=== PATIENT | male | born 1950 | race Caucasian/White ===

== ENCOUNTER 2020-07-04 05:35 | Day surgery (SDC) | payer OTHER ==
[~2020-07-04] VITALS: Ht 177.8 cm; Wt 103.9 kg
[~2020-07-04 05:35] MED LIST: FLUT.05NI; HYDCHL25 PO; METF500 PO; Vitamin B Comple1 EA PO
[2020-07-04] MEDS ORDERED: MUPIROCIN1 G1 TOP (06:19)
--- NOTE | 2020-07-04 06:36 | NUR ---
History, Chart, Medications and Allergies reviewed before start of procedure. Patient confirms NPO status and agrees with scheduled surgery. Lungs clear T/O to Auscultation.
--- NOTE | 2020-07-04 07:11 | NUR ---
0705- UP TO BR TO VOID.
--- NOTE | 2020-07-04 07:17 | NUR ---
[facility] USED TO NARES X3 AMPULES PER DR ORDER. KNEE HIGH DOROTHY HOSE WITH CALF PAS APPLIED TO LLE.
--- NOTE | 2020-07-04 17:09 | NUR ---
SHIFT SUMMARY PT VERY PLEASED. UP AMBULATING W/ SBA. WORKED W/ THERAPY WELL. EATING, DRINKING, AND VOIDING. PAIN WELL MANAGED.
--- NOTE | 2020-07-05 03:48 | NUR ---
SHIFT SUMMARY S/P RIGHT HIP FX. PT A/O WITH VSS. NO ACUTE CHANGES. NPO SINCE MIDNIGHT. IVF INFUSING PER ORDERS. HODGE IN PLACE TO GRAVITY DRAIN. PAIN MANAGED WITH 0.5MG IV DILAUDID. ON BEDREST, REPOSTIONED PRN GAURI. PT APPEARS TO HAVE RESTED WELL T/O NIGHT. PLAN FOR SURGERY TODAY. PT CURRENTLY RESTING IN BED WITH CALL LIGHT IN REACH. WILL CONT TO MONITOR AND GIVE REPORT TO ONCOMING RN.
--- NOTE | 2020-07-05 03:57 | NUR ---
SHIFT SUMMARY POD 1 RIGHT TKA, GRACIA WRAP/DRESSING CDI. TEDS AND POLAR DAYANARA IN PLACE. PAIN MANAGED WITH 1 TAB OXY. AMB IN HALLWAY 2X WITH FWW/GB/SBA; GAURI WELL. REPORTS VOIDING WITHOUT DIFFICULTY. GAURI PO INTAKE, DENIES N/V. PLAN TO WORK WITH THERAPY TODAY AND POSSIBLE D/C HOME. PT CURRENTLY RESTING IN BED WITH CALL LIGHT IN REACH. WILL CONT TO MONITOR AND GIVE REPORT TO ONCOMING RN.
[2020-07-05 04:34] LABS: BASOPHILS ABSOLUTE AUTO 0.03 K/mm3 (0.00-0.23); BASOPHILS PERCENT AUTO 0 % (0-2); EOSINOPHILS ABSOLUTE AUTO 0.08 K/mm3 (0.00-0.68); EOSINOPHILS PERCENT AUTO 1 % (0-6); Hematocrit 38.7 % (37.0-53.0); Hemoglobin 13.4 g/dL (13.5-17.5); IMMATURE GRAN ABSOLUTE AUTO 0.07 K/mm3 (0.00-0.10); IMMATURE GRAN PERCENT AUTO 1 % (0-1); LYMPHOCYTES ABSOLUTE AUTO 1.63 K/mm3 (0.84-5.20); LYMPHOCYTES PERCENT AUTO 12 % (21-46); MONOCYTES ABSOLUTE AUTO 1.58 K/mm3 (0.16-1.47); MONOCYTES PERCENT AUTO 12 % (4-13); Mean Corpuscular HGB 30.5 pg (26.0-34.0); Mean Corpuscular HGB Conc 34.6 g/dL (31.5-36.5); Mean Corpuscular Volume 88 fL (80-100); Mean Platelet Volume 11.8 fL (9.1-12.4); NEUTROPHILS ABSOLUTE AUTO 9.78 K/mm3 (1.96-9.15); NEUTROPHILS PERCENT AUTO 74 % (41-73); Platelet Count 208 K/mm3 (150-400); RDW Standard Deviation 42.1 fL (35.1-46.3); Red Blood Cell Count 4.39 M/mm3 (4.30-5.90); White Blood Cell Count 13.17 K/mm3 (4.00-11.30)
[2020-07-05 04:49] LABS: Anion Gap 4 mmol/L (6-16); Blood Urea Nitrogen 20 mg/dL (8-24); Bun/Creatinine Ratio 23.2 (12.0-20.0); CO2, Blood 30 mmol/L (21-32); Calcium, Blood 8.7 mg/dL (8.5-10.1); Chloride, Blood 107 mmol/L (98-108); Creatinine, Blood 0.86 mg/dL (0.60-1.20); Glomerular Filtration Rate >60 (60-); Glucose, Blood 150 mg/dL (70-99); Potassium, Blood 3.9 mmol/L (3.5-5.5); Sodium, Blood 141 mmol/L (136-145)
[2020-07-05] MEDS ORDERED: Percocet 5-3251 EACH PO (09:01)
[2020-07-05] MEDS ORDERED: ASPI325 PO (09:01)
--- NOTE | 2020-07-05 10:25 | NUR ---
DISCHARGE ESCORTED OUT VIA W/C AFTER GIVEN SCRIPTS, POLAR PACK, AND DRSGS. CLEARED THERAPY. EATING/DRINKING/VOIDING WITHOUT ISSUE. SPOUSE AT SIDE.
== END 2020-07-05 10:24 | disposition home or self-care (01) ==
LOC: ORSCMMR 05:35 → SURS 09:56 → ORD 12:15 → ORSCMMR 12:15 → ORD 07-11 13:45
PROVIDERS: Orthopaedic Surgery
PROC: 0SRC0JA Replacement of Right Knee Joint with Synthetic Substitute, Uncemented, Open Approach (ICD-10-PCS; principal; 2020-07-04 07:30)
PROC: 8E0Y0CZ Robotic Assisted Procedure of Lower Extremity, Open Approach (ICD-10-PCS; principal; 2020-07-04 07:30)
DX: M17.11 Unilateral primary osteoarthritis, right knee (principal); I10 Essential (primary) hypertension; E11.9 Type 2 diabetes mellitus without complications; Z79.899 Other long term (current) drug therapy; Z79.84 Long term (current) use of oral hypoglycemic drugs
CPT/HCPCS: 27447; S2900; 36415; 73560-RT; 80048; 82947; 85025; 88300; 97110; 97116; 97162; A9270; A9270-GY; C1776; J0171; J0690; J0735; J1100; J1815; J1885; J2250; J2370; J2405; J2704; J2795; J3010; J7120

== ENCOUNTER 2021-02-19 16:16 | Emergency (ER) | payer OTHER ==
[~2021-02-19] VITALS: Ht 177.8 cm; Wt 100.9 kg
[~2021-02-19 16:16] MED LIST changes: +ASPI325 PO; +MUPIROCIN1 G1 TOP; +Percocet 5-3251 EACH PO
[2021-02-19 17:11] LABS: BASOPHILS ABSOLUTE AUTO 0.07 K/mm3 (0.00-0.23); BASOPHILS PERCENT AUTO 1 % (0-2); EOSINOPHILS ABSOLUTE AUTO 0.34 K/mm3 (0.00-0.68); EOSINOPHILS PERCENT AUTO 5 % (0-6); Hematocrit 43.6 % (37.0-53.0); Hemoglobin 15.4 g/dL (13.5-17.5); IMMATURE GRAN ABSOLUTE AUTO 0.02 K/mm3 (0.00-0.10); IMMATURE GRAN PERCENT AUTO 0 % (0-1); LYMPHOCYTES ABSOLUTE AUTO 2.61 K/mm3 (0.84-5.20); LYMPHOCYTES PERCENT AUTO 38 % (21-46); MONOCYTES ABSOLUTE AUTO 0.91 K/mm3 (0.16-1.47); MONOCYTES PERCENT AUTO 13 % (4-13); Mean Corpuscular HGB 30.5 pg (26.0-34.0); Mean Corpuscular HGB Conc 35.3 g/dL (31.5-36.5); Mean Corpuscular Volume 86 fL (80-100); Mean Platelet Volume 11.1 fL (9.1-12.4); NEUTROPHILS ABSOLUTE AUTO 2.94 K/mm3 (1.96-9.15); NEUTROPHILS PERCENT AUTO 43 % (41-73); Platelet Count 246 K/mm3 (150-400); RDW Coefficient Variation 13.1 % (11.7-14.2); RDW Standard Deviation 41.1 fL (35.1-46.3); Red Blood Cell Count 5.05 M/mm3 (4.30-5.90); White Blood Cell Count 6.89 K/mm3 (4.00-11.30)
[2021-02-19 17:31] LABS: Alanine Aminotransfer (ALT/SGP 68 U/L (12-78); Albumin/Globulin Ratio 1.1 (0.8-1.8); Alk Phos 23 U/L (50-136); Anion Gap 5 mmol/L (6-16); Aspartate Aminotrans (AST/SGOT 27 U/L (12-37); Bilirubin, Total 0.5 mg/dL (0.1-1.0); Blood Urea Nitrogen 18 mg/dL (8-24); Bun/Creatinine Ratio 18.9 (12.0-20.0); CO2, Blood 29 mmol/L (21-32); Calcium, Blood 9.3 mg/dL (8.5-10.1); Chloride, Blood 105 mmol/L (98-108); Creatinine, Blood 0.95 mg/dL (0.60-1.20); Globulin, Blood 3.5 g/dL (2.2-4.0); Glomerular Filtration Rate >60 (60-); Glucose, Blood 100 mg/dL (70-99); Potassium, Blood 3.5 mmol/L (3.5-5.5); Sodium, Blood 139 mmol/L (136-145); Total Protein, Blood 7.5 g/dL (6.4-8.2); Troponin I <0.015 ng/mL (0.000-0.040)
[2021-02-19] MEDS ORDERED: LOSARTAN-HCTZ1 EAC3 PO (17:47)
== END 2021-02-19 19:00 | disposition home or self-care (01) ==
LOC: ER 16:16
PROVIDERS: Physician Assistant
DX: R07.9 Chest pain, unspecified (principal); Z79.84 Long term (current) use of oral hypoglycemic drugs; Z79.899 Other long term (current) drug therapy
CPT/HCPCS: 36415; 71046; 80053; 84484; 85025; 93005; 93010; 99285-25